=== PATIENT | male | born 1995 | race African-American/Black ===

== ENCOUNTER 2018-11-21 06:17 | Emergency (ER) | payer SELFPAY ==
[2018-11-21] MEDS ORDERED: Lidocaine 1% (PF) 30 ML VIAL ONE (08:13)
[2018-11-21] MEDS ORDERED: Ibuprofen 200 MG TAB ONE (09:06)
[2018-11-21] MEDS ORDERED: Adacel (T-DAP) 0.5 ML SYRINGE ONE (09:06)
== END 2018-11-21 09:20 | disposition home or self-care (01) ==
LOC: ERS 06:17
DX: L02.31 Cutaneous abscess of buttock (principal); F17.210 Nicotine dependence, cigarettes, uncomplicated
CPT/HCPCS: 10060; 90471; 90715; J2001

== ENCOUNTER → 2018-12-19 | Emergency (ER) | payer SELFPAY | LOC: ERS 08:17 | DX: Z11.3 Encounter for screening for infections with a predominantly sexual mode of transmission (principal); Z71.6 Tobacco abuse counseling; F17.210 Nicotine dependence, cigarettes, uncomplicated | CPT/HCPCS: 99281 ==